=== PATIENT | male | born 1970 | race Caucasian/White ===

== ENCOUNTER 2017-09-05 12:08 | Emergency (ER) | payer SELFPAY ==
[~2017-09-05] VITALS: Ht 152.4 cm; Wt 84.9 kg
[2017-09-05 12:13] VITALS: BP 126/83
[2017-09-05] MEDS ORDERED: HYDROcodone/APAP 5/325 TABLET PO PRN (13:00)
[2017-09-05] MEDS ORDERED: IBUPROFEN 200 MG TABLET PO ONE (13:00)
[2017-09-05] MEDS ORDERED: HYDROcodone/APAP 5/325 TABLET ONE (13:11)
[2017-09-05] MEDS ORDERED: IBUPROFEN 200 MG TABLET ONE (13:12)
== END 2017-09-05 13:39 | disposition home or self-care (01) ==
LOC: ED 13:15
DX: G89.29 Other chronic pain (principal); M25.562 Pain in left knee
CPT/HCPCS: 99284

== ENCOUNTER 2017-10-26 17:21 | Emergency (ER) | payer MEDICAID ==
[~2017-10-26] VITALS: Ht 182.9 cm; Wt 86.3 kg
[2017-10-26 17:21] VITALS: BP 122/71
== END 2017-10-26 18:35 | disposition home or self-care (01) ==
LOC: ED 18:05
DX: M25.462 Effusion, left knee (principal); M25.562 Pain in left knee
CPT/HCPCS: 99284

== ENCOUNTER 2018-04-24 00:51 | Emergency (ER) | payer MEDICAID ==
[~2018-04-24] VITALS: Ht 182.9 cm; Wt 84.8 kg
[2018-04-24 00:55] VITALS: BP 162/94
[2018-04-24] MEDS ORDERED: HYDROcodone/APAP 5/325 TABLET ONE (01:19)
[2018-04-24] MEDS ORDERED: HYDROcodone/APAP 5/325 TABLET PO ONE (01:30)
== END 2018-04-24 02:23 | disposition home or self-care (01) ==
LOC: ED 02:00
DX: G89.11 Acute pain due to trauma (principal); M79.602 Pain in left arm; F17.210 Nicotine dependence, cigarettes, uncomplicated
CPT/HCPCS: 29125; 99284

== ENCOUNTER 2018-04-28 05:19 | Emergency (ER) | payer MEDICAID ==
[~2018-04-28] VITALS: Ht 182.9 cm; Wt 85.0 kg
[2018-04-28] MEDS ORDERED: CEPHALEXIN 500 MG CAPSULE ONE (05:44)
[2018-04-28] MEDS ORDERED: SULFAMETH./TRIMETHOPRIM DS 800MG/160MG TABLET ONE (05:44)
[2018-04-28] MEDS ORDERED: CEPHALEXIN 500 MG CAPSULE PO ONE (06:00)
[2018-04-28] MEDS ORDERED: SULFAMETH./TRIMETHOPRIM DS 800MG/160MG TABLET PO ONE (06:00)
[2018-04-28 06:41] VITALS: BP 117/74
== END 2018-04-28 07:54 | disposition home or self-care (01) ==
LOC: ED 06:55
DX: S62.102A Fracture of unspecified carpal bone, left wrist, initial encounter for closed fracture (principal); S52.122A Displaced fracture of head of left radius, initial encounter for closed fracture; L03.114 Cellulitis of left upper limb; X58.XXXA Exposure to other specified factors, initial encounter; Y93.89 Activity, other specified; Y92.410 Unspecified street and highway as the place of occurrence of the external cause; Y99.8 Other external cause status
CPT/HCPCS: 29125; 99284

== ENCOUNTER 2019-03-24 11:33 | Emergency (ER) | payer MEDICAID ==
[~2019-03-24] VITALS: Ht 182.9 cm; Wt 99.0 kg
== END 2019-03-24 12:17 | disposition home or self-care (01) ==
LOC: ED 12:05
DX: J01.00 Acute maxillary sinusitis, unspecified (principal)
CPT/HCPCS: 99283

== ENCOUNTER 2020-12-24 09:26 | Emergency (ER) | payer MEDICAID ==
[~2020-12-24] VITALS: Ht 182.9 cm; Wt 119.0 kg
--- NOTE | 2020-12-24 09:51 | NUR ---
PT AMBULATORY TO ROOM 33 W/ C/O NIGHT SWEATS AND CHILLS STARTED SATURDAY. PT ALSO STATES HE GOT WEAKER. STATES HIS SWEATS/CHILLS HAVE IMPROVED BUT COME BACK AT NIGHT. STATES THE WEAKNESS IS THE SAME. PT STATES HE WANTS A COVID TEST. PT RESTING ON GURNEY. NADN. MONITORS APPLIED. VSS.
[2020-12-24 10:57] LABS: BASOPHILS % (AUTO) 1 % (0-1); EOSINOPHILS % (AUTO) 4 % (1-7); LYMPHOCYTES % (AUTO) 21 % (22-44); MEAN PLATELET VOLUME 8.6 fL (7.4-10.4); MONOCYTES % (AUTO) 10 % (2-9); NEUTROPHILS % (AUTO) 65 % (42-75); PLATELET COUNT 349 x10^3/uL (130-400); RED CELL DISTRIBUTION WIDTH 15.4 % (9.4-14.8)
[2020-12-24 11:06] LABS: MD NO
[2020-12-24 11:10] LABS: ALBUMIN 3.4 g/dL (3.4-5.0); ANION GAP 3 mmol/L (5-15); CHLORIDE 108 mmol/L (98-107)
[2020-12-24 11:15] LABS: ALANINE AMINOTRANSFERASE 30 U/L (12-78); ALKALINE PHOSPHATASE 64 U/L (45-117); BILIRUBIN,TOTAL 0.6 mg/dL (0.2-1.0); CALCIUM 8.5 mg/dL (8.5-10.1); CREATININE 1.11 mg/dL (0.7-1.3)
--- NOTE | 2020-12-24 11:20 | NUR ---
TASK RN: PT RESTING COMFORTABLY ON GURNEY, WATCHING TV. RESP EVEN AND UNLABORED. REPORT GIVEN TO PRIMARY RN.
[2020-12-24 11:39] LABS: RAPID INFLUENZA A Negative (Negative); RAPID INFLUENZA B Negative (Negative)
[2020-12-24 11:54] VITALS: BP 123/76
--- NOTE | 2020-12-24 11:55 | NUR ---
PT RESTING ON GURNEY. NADN. PINA.
== END 2020-12-24 12:19 | disposition home or self-care (01) ==
LOC: ED 10:52
DX: J06.9 Acute upper respiratory infection, unspecified (principal); Z20.822 Contact with and (suspected) exposure to COVID-19; B34.9 Viral infection, unspecified
CPT/HCPCS: 36415; 71045; 80053; 85025; 87400; 99284; U0003

== ENCOUNTER 2021-06-24 02:20 | Emergency (ER) | payer MEDICAID ==
[~2021-06-24] VITALS: Ht 182.9 cm; Wt 103.6 kg
[2021-06-24] MEDS ORDERED: CLINDAMYCIN 300 MG CAPSULE ONE (02:45)
[2021-06-24] MEDS ORDERED: LIDOCAINE-MPF 1%, 2ML ONE (02:46)
[2021-06-24] MEDS ORDERED: IBUPROFEN 200 MG TABLET PO ONE (03:00)
[2021-06-24] MEDS ORDERED: ACETAMINOPHEN 500 MG TABLET PO ONE (03:00)
[2021-06-24] MEDS ORDERED: CLINDAMYCIN 300 MG CAPSULE PO ONE (03:00)
[2021-06-24] MEDS ORDERED: LIDOCAINE-MPF 1%, 2ML INFIL ONE (03:00)
[2021-06-24] MEDS ORDERED: IBUPROFEN 600 MG TABLET ONE (03:04)
[2021-06-24] MEDS ORDERED: ACETAMINOPHEN 500 MG TABLET ONE (03:04)
[2021-06-24 03:07] VITALS: BP 142/92
== END 2021-06-24 03:24 | disposition home or self-care (01) ==
LOC: ED 02:30
DX: K04.7 Periapical abscess without sinus (principal); K08.89 Other specified disorders of teeth and supporting structures
CPT/HCPCS: 99283